=== PATIENT | female | born 1935 | race Caucasian/White ===

== ENCOUNTER → 2019-10-14 13:29 | Outpatient (CLI) | payer MEDICARE, OTHER, SELFPAY ==
--- NOTE | 2019-10-14 13:33 | DI.RAD.S_ITS ---
PROCEDURE: XR KNEE RT 3V INDICATIONS: pain in right knee TECHNIQUE: 3 views of the knee were acquired. COMPARISON: None. FINDINGS: Bones: No fractures or dislocations. No suspicious bony lesions. Mild degenerative change. Soft tissues: Small joint effusion. No suspicious soft tissue calcifications. IMPRESSION: No acute osseous abnormality. Small joint effusion. Dictated by: Hipolito Morales M.D. on 10/14/2019 at 14:12 Approved by: Hipolito Morales M.D. on 10/14/2019 at 14:12
== END ==
PROVIDERS: Family Provider Urology; Referring Provider Physician Assistant; Visit Provider Physician Assistant
DX: M25.561 Pain in right knee (principal); M25.461 Effusion, right knee
CPT/HCPCS: 73562

== ENCOUNTER 2020-06-29 08:51 | Day surgery (SDC) | payer MEDICARE, OTHER, SELFPAY ==
[2020-06-29] MEDS: PROPARACAINE 0.5% OPHTH SOL 2 DROPS EYE-OP (09:55)
[2020-06-29] MEDS: CATARACT EYE COMPOUND (10 DROPS/SYRINGE) 3 DROPS EYE-OP (09:59)
[2020-06-29 10:01] VITALS: BP 122/72; PULSE 65; RESP 16; TEMP 36.7; O2SAT 100; BMI 18.0
[2020-06-29 10:04] LABS: COVID19 -Nasal RAPID Negative (Negative)
--- NOTE | 2020-06-29 10:30 | PM.PREOP ---
Pre-operative Note Interval Note History & Physical reviewed/Exam performed by Physician: Yes Changes to H&P: No
--- NOTE | 2020-06-29 10:31 | PM.OP.1 ---
Operative Date/Time/Diagnoses Pre-op diagnosis: Nuclear cataract right eye Procedure & Clinicians Procedure: Cataract Surgery Same procedure as scheduled: Yes Surgeon: Pito Pollack Anesthesia Type: MAC +/- and Sedation Operative Notes Procedure in detail: Patient brought to the operating suite. Tetracaine drops placed in the right eye. Patient was prepped and draped in sterile manner. Wire lid speculum was placed in the eye. Betadine drops were placed on the eye. This was irrigated. Lidocaine jelly was placed on the eye. A paracentesis port was created with a side-port blade. 0.1 mL 1% preservative free lidocaine was injected into the anterior chamber. The anterior chamber was deepened with viscoelastic. 2.6 mm keratome was used to create a temporal clear corneal incision. Cystotome and Utrata forceps were used to create continuous tear capsulorrhexis. Balanced salt solution was used to hydro dissect the nucleus. The phacoemulsification handpiece was inserted and the nucleus was removed using the stop and chop technique. The irrigation aspiration handpiece was inserted and the remaining cortex was removed. Anterior chamber was deepened with viscoelastic. An Stuart ZCB00 intraocular lens with a power of 21.5 was injected into the capsular bag. Irrigation aspiration handpiece was inserted and the remaining viscoelastic was removed. Incision was hydrated with balanced salt solution and found to be leak free with pressure with Weck-Malissa sponges. 0.1 mL Vigamox injected anterior chamber. 0.3 mL Kenalog 10 mg was injected subconjunctivally. Lid speculum was removed. The patient left the operating room in excellent condition. Complications: none Post-operative Condition: stable Disposition: same day surgery
[2020-06-29] MEDS: MOXIFLOXACIN INJ 4 MG/0.8 ML VIAL 0.5 MG EYE-OP (10:50)
[2020-06-29] MEDS: PHENYLEPHRINE/LIDOCAINE VIAL (OR) 0.2 ML EYE-OP (10:50)
[2020-06-29] MEDS: BALANCED SALT IRRIG SOLN NO.2 500 ML, EPINEPHrine 1 MG IRR (10:51)
[2020-06-29] MEDS: TRIAMCINOLONE 50 MG/5 ML VIAL INJ (10:51)
[2020-06-29] MEDS: LIDOCAINE 2% (GLYDO) 6 ML GEL TOP (10:51)
[2020-06-29] MEDS: TETRACAINE 0.5% OPHTH DROPS 4 ML 2 DROPS EYE-OP (10:51)
[2020-06-29] MEDS: CHONDROIDTIN/SOD HYALURONATE 1.05 ML SYRINGE INTRAOCULA (10:51)
[2020-06-29 11:05] VITALS: BP 127/72; PULSE 61; RESP 14; TEMP 36.6; O2SAT 99
[2020-06-29 11:21] VITALS: BP 129/66; PULSE 62; RESP 12; TEMP 36.3; O2SAT 95
== END 2020-06-29 11:28 | disposition home or self-care (01) ==
PROVIDERS: Family Provider Urology; PCP Physician Assistant; Referring Provider Ophthalmology; Visit Provider Ophthalmology
PROC: (CPT 66984; principal; 2020-06-29 10:45)
DX: H25.11 Age-related nuclear cataract, right eye (principal); I10 Essential (primary) hypertension; F03.90 Unspecified dementia, unspecified severity, without behavioral disturbance, psychotic disturbance, mood disturbance, and anxiety
CPT/HCPCS: 66984; 87635; J0171; J3010; J3301

== ENCOUNTER → 2020-07-13 15:47 | Outpatient (CLI) | payer MEDICARE, OTHER, SELFPAY ==
--- NOTE | 2020-07-13 15:50 | DI.ECHO.S_ITS ---
[facility] +---------+ : : [address] : : : : [id number] : : : : Phone: [phone]+ Echocardiogram Report + + :Name: DAISHA WRAY Study Date: 07/13/2020 Height: 64 in : :[facility] ReadingLocation: Weight: 155 lb : : Gender: Female BSA: 1.8 m2 : :: 1935 Age: 84 yrs BP: 157/75 mmHg: :Reason For Study: MITRAL VALVE PROLAPSE : :Ordering Physician: LORENZO, : :KELY Performed By: Liz Schwartz : :Referring: KELY VENTURA : + + Interpretation Summary The left ventricle is normal in size and wall thickness. The ejection fraction is estimated to be 65-70%. There are no focal wall motion abnormalities. The right ventricle is normal in size and function. Pulmonary artery pressures cannot be estimated because of the lack of a measurable TR jet velocity but the IVC suggests a CVP of around 3 mmHg. The left atrium is severely dilated. Right atrial size is normal. There is mild to moderate mitral annular calcification. There is severe mitral valve prolapse. There is prolapse of the posterior mitral valve leaflet(s). Difficult to quantify mitral regurgitation but I suspect that it is severe. It has an eccentric jet. There is mild aortic regurgitation. There is no other significant valvular heart disease. The aortic root is normal size. Procedure: A two-dimensional transthoracic echocardiogram with color flow and Doppler was performed. The study quality was technically adequate. There is no prior echocardiogram noted for this patient. The patient was in sinus rhythm with heart rates between 62-66 bpm during the exam. Left Ventricle: The left ventricle is normal in size and wall thickness. The ejection fraction is estimated to be 65-70%. There are no focal wall motion abnormalities. Diastolic function could not be accurately assessed due to confounding valvular disease. Right Ventricle: The right ventricle is normal in size and function. Atria: The left atrium is severely dilated. Right atrial size is normal. There is no Doppler evidence for an interatrial shunt. Mitral Valve: There is mild to moderate mitral annular calcification. The mitral valve leaflets appear mildly thickened, but open well. There is severe mitral valve prolapse. There is prolapse of the posterior mitral valve leaflet (s). Difficult to quantify mitral regurgitation but I suspect that it is severe. It has an eccentric jet. Aortic Valve: The aortic valve is trileaflet. The aortic valve opens well. There is no aortic valve stenosis. There is mild aortic regurgitation. Tricuspid Valve: The tricuspid valve is normal in structure and function. There is trace tricuspid regurgitation. Pulmonary artery pressures cannot be estimated because of the lack of a measurable TR jet velocity but the IVC suggests a CVP of around 3 mmHg. Pulmonic Valve: The pulmonic valve is not well seen, but is grossly normal. There is trace pulmonic regurgitation. There is no other significant valvular heart disease. Great Vessels: The aortic root is normal size. The dimensions of the ascending aorta are normal. The IVC is of normal diameter and collapses greater than 50% with a sniff. This suggests a low right atrial pressure of 3 mm Hg. Pericardium/ Pleura There is no pericardial effusion. There is no pleural effusion. MMode/2D Measurements & Calculations LVIDd: 5.1 cm LVOT diam: 2.0 cm LVIDs: 2.9 cm Ao root diam: 2.7 cm FS: 43.8 % asc Aorta Diam: 2.6 cm EPSS: 0.21 cm Ao Arch Diam (Prox Trans): 2.4 cm IVSd: 0.93 cm LVPWd: 0.77 cm LV wilson. diameter/BSA (cm/m^2): 2.9 LV sys. diameter/BSA (cm/m^2): 1.6 LA A2 area: 28.4 cm2 RA long axis: 4.8 cm LA A4 area: 22.6 cm2 RA area: 17.1 cm2 LA length (vol): 5.0 cm RA vol: 51.9 ml LA vol: 108.9 ml RA : 29.6 ml/m2 LA vol index: 62.1 ml/m2 IVC diam: 1.9 cm RVD1 (basal): 3.4 cm TAPSE: 1.8 cm Doppler Measurements & Calculations Ao V2 max: 148.0 cm/sec LVOT Max Siva: 120.9 cm/sec Ao V2 mean: 103.2 cm/sec LV V1 max P.9 mmHg Ao max P.8 mmHg LV V1 VTI: 20.2 cm Ao mean P.7 mmHg ONESIMO(I,D): 2.5 cm2 Ao V2 VTI: 25.5 cm ONESIMO(V,D): 2.5 cm2 sev ratio: 0.79 ONESIMO indexed to BSA (cm^2/m^2): 1.4 AI P1/2t: 609.4 msec AI dec slope: 184.9 cm/sec2 MV E max siva: 210.1 cm/sec PA pr(Accel): 48.2 mmHg MV A max svia: 77.4 cm/sec MV E/A: 2.7 Med Peak E' Siva: 3.9 cm/sec E/E' med: 54.2 Lat Peak E' Siva: 6.7 cm/sec E/E' lat: 31.5 E/e' average: 42.9 MV dec time: 0.27 sec MR ERO: 0.83 cm2 MR PISA: 10.3 cm2 SV(LVOT): 62.6 ml MR flow rate: 379.0 cm3/sec MR PISA radius: 1.3 cm Reading Physician:06:16 PM
== END ==
PROVIDERS: Family Provider Urology; PCP Physician Assistant; Referring Provider Physician Assistant; Visit Provider Physician Assistant
DX: I08.0 Rheumatic disorders of both mitral and aortic valves (principal)
CPT/HCPCS: 93306

== ENCOUNTER → 2020-08-20 10:56 | Outpatient (CLI) | payer MEDICARE, OTHER, SELFPAY ==
--- NOTE | 2020-08-20 10:57 | DI.CT.S_ITS ---
PROCEDURE: CT ABDOMEN PELVIS W CON INDICATIONS: EPIGASTRIC PAIN TECHNIQUE: After the administration of oral and intravenous contrast, axial sections were acquired from the lung bases to the pubic symphysis. Coronal and sagittal reformats were performed. For radiation dose reduction, the following was used: automated exposure control, adjustment of mA and/or kV according to patient size. COMPARISON:[facility], CT, IVP (ABD & PEL WWO CONTRAST), 06/15/2016, 9:53. FINDINGS: ABDOMEN: Lung bases: Scattered atelectasis/scarring. Small right pleural effusion Heart: Cardiomegaly. No pericardial effusion. Liver: Multiple hypodense lesions seen in the liver, the largest measuring 3.1 cm at the dome on image 10/3. Unclear if this reflects to interval decrease in size of a previously seen cyst from the prior study from 06/15/16. This could be a de josé lesion. Gallbladder: Mildly contracted otherwise unremarkable.. Bile ducts: Normal. Pancreas: Diffuse atrophy otherwise unremarkable. Spleen: Normal. Adrenals: A possible small subcentimeter left adrenal adenoma which is unchanged. The right adrenal gland is unremarkable. Kidneys and Ureters: Bilateral renal cortical atrophy and thinning. No hydronephrosis. Stomach and duodenum: Normal. Bowel: No evidence of bowel obstruction. Large amount of stool and gas is present in the rectal vault. There is possible distal small bowel wall thickening and mild adjacent inflammatory stranding. The appendix is thought to be normal seen on image 43/3. Other: No free fluid or air. Abdominal nodes: Normal. Aorta and IVC: Normal in size. Scattered vascular calcifications. Ventral wall: Normal. PELVIS: Bladder: Normal. Inguinal region: No hernia. Pelvic nodes: Normal. Bones: Spondylytic changes and facet arthropathy. No vertebral body compression fracture. Multilevel spondylolisthesis. IMPRESSION: Distal small bowel wall thickening, with mild adjacent inflammatory stranding. This suggests infectious or inflammatory enteritis. The appendix is thought to be normal as above. No bowel obstruction Small right pleural effusion Hypodense lesions seen in liver, the largest of which may represent an involuting cyst although technically indeterminate. Ultrasound surveillance to document long-term stability could be performed as clinically warranted . Additional chronic and incidental findings as above. Dictated by: Palomo Samaniego M.D. on 08/20/2020 at 15:18 Approved by: Palomo Samaniego M.D. on 08/20/2020 at 15:26
== END ==
PROVIDERS: Family Provider Urology; PCP Physician Assistant; Referring Provider Physician Assistant; Visit Provider Physician Assistant
DX: R10.13 Epigastric pain (principal); J90 Pleural effusion, not elsewhere classified; K76.9 Liver disease, unspecified
CPT/HCPCS: 74177; Q9967

== ENCOUNTER → 2020-08-30 11:09 | Outpatient (CLI) | payer MEDICARE, OTHER, SELFPAY ==
[2020-08-30 13:25] LABS: COVID19 -Nasal RAPID Negative (Negative)
== END ==
PROVIDERS: Family Provider Urology; PCP Physician Assistant; Visit Provider Physician Assistant
DX: Z01.812 Encounter for preprocedural laboratory examination (principal); Z20.822 Contact with and (suspected) exposure to COVID-19
CPT/HCPCS: 87635; C9803

== ENCOUNTER 2020-08-31 08:31 | Day surgery (SDC) | payer MEDICARE, OTHER, SELFPAY ==
[2020-08-31] MEDS: PROPARACAINE 0.5% OPHTH SOL 2 DROPS EYE-OP (08:56)
[2020-08-31] MEDS: CATARACT EYE COMPOUND (10 DROPS/SYRINGE) 3 DROPS EYE-OP (08:59)
[2020-08-31 09:02] VITALS: BP 135/80; PULSE 87; RESP 18; TEMP 36.1; O2SAT 98; BMI 19.5
--- NOTE | 2020-08-31 09:20 | SUR.PREOP ---
Pt initially said she had no breakfast, than said she had toast and coffee, Both Dr. Pollack and Dr. Olivares made aware, pts surgery to be delayed, pre op meds ordered.
[2020-08-31] MEDS: METOCLOPRAMIDE 10 MG/2 ML INJ (10:01)
[2020-08-31] MEDS: FAMOTIDINE 20 MG/2 ML VIAL IV (10:05)
--- NOTE | 2020-08-31 11:20 | PM.PREOP ---
Pre-operative Note Interval Note History & Physical reviewed/Exam performed by Physician: Yes Changes to H&P: No
--- NOTE | 2020-08-31 11:20 | PM.OP.1 ---
Operative Date/Time/Diagnoses Pre-op diagnosis: Nuclear Cataract Left eye Post-op diagnosis: same Procedure & Clinicians Same procedure as scheduled: Yes Surgeon: Pito Pollack Anesthesia Type: MAC +/- and Sedation Operative Notes Procedure in detail: Patient brought to the operating suite. Tetracaine drops placed in the left eye. Patient was prepped and draped in sterile manner. Wire lid speculum was placed in the eye. Betadine drops were placed on the eye. This was irrigated. Lidocaine jelly was placed on the eye. A paracentesis port was created with a side-port blade. 0.1 mL 1% preservative free lidocaine was injected into the anterior chamber. The anterior chamber was deepened with viscoelastic. 2.6 mm keratome was used to create a temporal clear corneal incision. Cystotome and Utrata forceps were used to create continuous tear capsulorrhexis. Balanced salt solution was used to hydro dissect the nucleus. The phacoemulsification handpiece was inserted and the nucleus was removed using the stop and chop technique. The irrigation aspiration handpiece was inserted and the remaining cortex was removed. Anterior chamber was deepened with viscoelastic. An Stuart DIB00 intraocular lens with a power of 22.5 was injected into the capsular bag. Irrigation aspiration handpiece was inserted and the remaining viscoelastic was removed. Incision was hydrated with balanced salt solution and found to be leak free with pressure with Weck-Malissa sponges. 0.1 mL Vigamox injected anterior chamber. 0.3 mL Kenalog 10 mg was injected subconjunctivally. Lid speculum was removed. The patient left the operating room in excellent condition. Complications: none Post-operative Condition: stable Disposition: same day surgery
[2020-08-31] MEDS: CHONDROIDTIN/SOD HYALURONATE 1.05 ML SYRINGE INTRAOCULA (11:27)
[2020-08-31] MEDS: LIDOCAINE 2% (GLYDO) 6 ML GEL TOP (11:27)
[2020-08-31] MEDS: MOXIFLOXACIN INJ 4 MG/0.8 ML VIAL 0.5 MG EYE-OP (11:28)
[2020-08-31] MEDS: BALANCED SALT IRRIG SOLN NO.2 500 ML, EPINEPHrine 1 MG IRR (11:28)
[2020-08-31] MEDS: TETRACAINE 0.5% OPHTH DROPS 4 ML 2 DROPS EYE-OP (11:29)
[2020-08-31] MEDS: TRIAMCINOLONE 50 MG/5 ML VIAL INJ (11:29)
[2020-08-31] MEDS: PHENYLEPHRINE/LIDOCAINE VIAL (OR) 0.2 ML EYE-OP (11:29)
[2020-08-31 11:48] VITALS: BP 126/79; PULSE 72; RESP 18; TEMP 36.4; O2SAT 96
== END 2020-08-31 11:56 | disposition home or self-care (01) ==
PROVIDERS: Family Provider Urology; PCP Physician Assistant; Referring Provider Ophthalmology; Visit Provider Ophthalmology
PROC: (CPT 66984; principal; 2020-08-31 10:15)
DX: H25.12 Age-related nuclear cataract, left eye (principal); I10 Essential (primary) hypertension; F03.90 Unspecified dementia, unspecified severity, without behavioral disturbance, psychotic disturbance, mood disturbance, and anxiety
CPT/HCPCS: 66984; J0171; J2765; J3010; J3301

== ENCOUNTER 2021-06-27 10:28 | Observation (INO) | payer MEDICARE, OTHER, SELFPAY ==
[2021-06-27] VITALS (9 sets, daily range): BP systolic 132–170; BP diastolic 69–104; PULSE 50–83; RESP 14–16; TEMP 36.9–37.1; O2SAT 91–96; BMI 19.5; BMI 19.3
--- NOTE | 2021-06-27 10:30 | DI.CT.S_ITS ---
PROCEDURE: CT HEAD/BRAIN WO CON INDICATIONS: Fall on thinners TECHNIQUE: Noncontrast 4.5 mm thick angled axial sections acquired from the foramen magnum to the vertex, with coronal and sagittal reformats. For radiation dose reduction, the following was used: automated exposure control, adjustment of mA and/or kV according to patient size. COMPARISON: [facility], CT, CT CERVICAL SPINE WO CON, 06/27/2021, 10:37. [facility], MR, MR BRAIN WITH/WITHOUT CONTRAST, 11/24/2017, 15:24. FINDINGS: Image quality: Mild streak artifact can be seen through the skull base. CSF spaces: Basal cisterns are patent. No extra-axial fluid collections. The ventricles are symmetric in size and shape. Brain: No intracranial bleeds or masses. There is cerebral volume loss for age, with resultant ventricular and sulcal prominence. There are periventricular and deep white matter chronic small vessel ischemic changes. There is intracranial internal carotid artery atherosclerosis. Skull and face: Calvarium and visualized facial bones appear intact, without suspicious lesions. Sinuses: Visualized sinuses and mastoids are clear. IMPRESSION: No acute intracranial hemorrhage is seen. No acute intracranial process is seen. Dictated by: Donato Oropeza M.D. on 06/27/2021 at 9:51 Approved by: Donato Oropeza M.D. on 06/27/2021 at 9:52
--- NOTE | 2021-06-27 10:30 | DI.CT.S_ITS ---
PROCEDURE: CT CERVICAL SPINE WO CON INDICATIONS: Fall on thinners TECHNIQUE: Noncontrast 3 mm thick sections acquired from the skull base to the T4 level. Sagittal and coronal reformats were then constructed. For radiation dose reduction, the following was used: automated exposure control, adjustment of mA and/or kV according to patient size. COMPARISON: [facility], CT, CT HEAD/BRAIN WO CON, 06/27/2021, 10:37. FINDINGS: Image quality: Excellent. Bones: No fractures or dislocations. Visualized superior ribs are intact. Focal degenerative change is seen involving the C1-C2 interface anteriorly. There is moderate disc space narrowing at C3-C4, with at least moderate disc space narrowing at C5-C6. Moderate to severe disc space narrowing seen at C6-C7. Posteriorly directed endplate osteophytes are seen, which are worst at C6-C7. Partial fusion of facet joints can be seen. Soft tissues: Prevertebral soft tissues are normal in thickness. No paravertebral hematomas. No apical pneumothoraces. A small to moderate right-sided pleural effusion is incidentally noted. IMPRESSION: No acute fracture is seen. Degenerative changes are seen, which are worst inferiorly. A small to moderate right-sided pleural effusion is partially seen. Dictated by: Donato Oropeza M.D. on 06/27/2021 at 9:52 Approved by: Donato Oropeza M.D. on 06/27/2021 at 9:54
--- NOTE | 2021-06-27 10:36 | DI.RAD.S_ITS ---
PROCEDURE: XR PELVIS 1-2V INDICATIONS: Left hip pain TECHNIQUE: Single view(s) of the pelvis acquired. COMPARISON: None. FINDINGS: Bones: Decreased mineralization. There is an impacted fracture deformity of the left inferior pubic ramus and impaction deformity at the left pubic symphysis. No other visible fractures. Sacroiliac joints, femoroacetabular joints, and pubic symphysis demonstrate mild degeneration but are otherwise intact. Soft tissues: Visualized bowel gas pattern is normal. No suspicious soft tissue calcifications. IMPRESSION: 1. Impacted left superior and inferior pubic rami fractures. 2. Demineralization. Dictated by: Shea Romero M.D. on 06/27/2021 at 11:13 Approved by: Shea Romero M.D. on 06/27/2021 at 11:15
--- NOTE | 2021-06-27 10:37 | DI.RAD.S_ITS ---
PROCEDURE: XR CHEST 1V INDICATIONS: Fall TECHNIQUE: One view of the chest was acquired. COMPARISON: None. FINDINGS: Surgical changes and devices: None. Lungs and pleura: Small right pleural effusion versus pleural thickening along the lower aspect of the right hemithorax as well as apical pleural thickening. Diffuse thickening of the interstitial markings is present bilaterally. No pneumothorax. Ill-defined patchy opacities are present in the right upper and right mid lung. Mediastinum: The heart is diffusely enlarged and there is moderate mitral annular calcification. Aortic contour is normal. Bones and chest wall: No visible fractures. Degenerative endplate spurs in the thoracic spine. IMPRESSION: 1. No radiographic evidence of acute trauma. 2. Cardiomegaly and diffuse interstitial thickening is most suggestive of CHF, chronicity uncertain. 3. There is basal and apical pleural thickening versus effusion on the right along with scattered patchy parenchymal opacities. This may reflect infection, inflammation, malignancy, or chronic lung disease. Correlate clinically. Dictated by: Shea Romero M.D. on 06/27/2021 at 11:10 Approved by: Shea Romero M.D. on 06/27/2021 at 11:13
--- NOTE | 2021-06-27 11:28 | DI.CT.S_ITS ---
PROCEDURE: CT PEL WO CON INDICATIONS: severe pain after fall, L hip pain TECHNIQUE: Noncontrast 3 mm axial sections acquired through the bony pelvis, with coronal and sagittal reformatting. COMPARISON: [facility], CR, XR PELVIS 1-2V, 06/27/2021, 10:26. FINDINGS: Image quality: Excellent. Bones: There is a minimally displaced left sacral ala fracture. In addition, there are mildly displaced left superior and inferior pubic remote fractures. No definitive proximal proximal femoral fractures. Grade 1 anterolisthesis of L4 on L5. Moderate degenerative disc disease at L4-L5 and L5-S1. Severe facet arthropathy at L4-L5 and L5-S1 bilaterally. There is generalized osteopenia. Soft tissues: Mild subcutaneous soft tissue contusions in the left buttock. No soft tissue mass or hematoma. A 2.2 cm presacral cyst is probably related to the ovary. Moderate amount of stool in colon. Moderate atherosclerotic calcifications of aorta and iliac arteries. IMPRESSION: 1. Minimally displaced left sacral ala fracture. 2. Mildly displaced left superior and inferior pubic remote fractures. 3. No definitive proximal femoral fractures. Because of osteopenia. Subtle fractures may be difficult to visualize. If clinical symptoms persist, a repeat examination is recommended. 4. Degenerative disc and facet disease in lumbar spine. Dictated by: Miroslava Hernández M.D. on 06/27/2021 at 11:40 Approved by: Miroslava Hernández M.D. on 06/27/2021 at 11:51
--- NOTE | 2021-06-27 11:54 | PC.NURSE ---
Verbal order from Dr. Suggs for Purewick placement r/t status of pelvis. Purewick applied, pt tolerated well, is voiding into it.
[2021-06-27 12:22] LABS: Add Manual Diff / Slide Review NO; Basophils Absolute Auto 0 /uL (0-100); Basophils Percent Auto 0.3 % (0-2); Eosinophils Absolute Auto 0 /uL (0-450); Eosinophils Percent Auto 0.2 % (2-4); Hematocrit 47.3 % (36-46); Hemoglobin 15.8 g/dL (12.0-16.0); Lymphocytes Absolute Auto 500 /uL (1100-4500); Lymphocytes Percent Auto 6.3 % (25-40); Mean Corpuscular HGB Conc 33.3 % (30-36); Mean Corpuscular Hemoglobin 33.3 PG (26-34); Monocytes Absolute Auto 700 /uL (0-900); Monocytes Percent Auto 9.7 % (3-14); Neutrophils Absolute Auto 6500 /uL (1500-7000); Neutrophils Percent Auto 83.5 % (50-75); Platelet Count 210 X10^3/uL (150-400); Red Blood Cell Count 4.72 X10^6/uL (4.0-5.2); Red Cell Distribution Width 15.2 % (11.6-14.8); White Blood Cell Count 7.8 X10^3/uL (4.5-11.0)
[2021-06-27 12:33] LABS: Alanine Aminotransferase 30 IU/L (<35); Albumin 3.9 g/dL (3.5-5.0); Albumin Globulin Ratio 1.2 (1.0-2.8); Alkaline Phosphatase 119 U/L (38-126); Aspartate Aminotransferase 42 IU/L (14-36); BUN Creatinine Ratio 25.9 (6-22); Bilirubin Total 1.5 mg/dL (0.2-1.3); Blood Urea Nitrogen 21 mg/dL (7-17); Calcium 8.8 mg/dL (8.4-10.2); Carbon Dioxide 31 mmol/L (22-32); Chloride 96 mmol/L (98-107); Estimated Glomerular Filt Rate > 60 mL/min (>60); Globulin 3.3 g/dL (1.7-4.1); Glucose 111 mg/dL (80-110); HEMOLYSIS 21 (0-50); Potassium 3.7 mmol/L (3.4-5.1); Sodium 135 mmol/L (137-145); Total Protein 7.2 g/dL (6.3-8.2)
[2021-06-27 12:37] LABS: COVID19 -Nasal RAPID Negative (Negative)
--- NOTE | 2021-06-27 13:01 | ED_ITS ---
HPI - Fall General Chief Complaint: Trauma Stated Complaint: Ground level fall Time Seen by Provider: 06/27/21 10:38 Source: EMS Mode of arrival: EMS History of Present Illness HPI Narrative: 85F former smoker with history of dementia, hypertension, CHF and atrial fibrillation presents with a chief complaint of a ground level fall last evening that was unwitnessed. She presents by EMS and is activated as a modified trauma given fall with possible head injury on anticoagulation. She complains of only pain in her tailbone but is insufficient pain as she cannot ambulate. She normally gets around at home without difficulty. She is always confused and , who was at the bedside, states that she is at her baseline neurologic status. She does not remember falling and contributes very little to the history of present illness but currently denies head or neck pain. She denies any chest pain or shortness of breath. She has no nausea, vomiting or diarrhea. She denies upper extremity injury and complains only of left hip and tailbone pain Related Data Home Medications Medication Instructions Recorded Confirmed apixaban 2.5 mg tablet (Eliquis) 2.5 mg PO BID 06/27/21 06/27/21 donepezil 10 mg tablet 10 mg PO BEDTIME 06/27/21 06/27/21 metoprolol succinate 25 mg 25 mg PO DAILY 06/27/21 06/27/21 tablet,extended release 24 hr sertraline 25 mg tablet 25 mg PO DAILY 06/27/21 06/27/21 torsemide 20 mg tablet 40 mg PO DAILY 06/27/21 06/27/21 Allergies Allergy/AdvReac Type Severity Reaction Status Date / Time Tetracyclines [TETRACYCLINES] Allergy Unknown Rash Verified 06/27/21 10:38 Review of Systems Review of Systems Narrative: GENERAL: Denies chills, fatigue, malaise, fever, sweats. HEENT: Denies sinus pain, ear pain, sore throat, difficulty swallowing, dizziness. RESPIRATORY: Denies dyspnea, cough, wheezing, hemoptysis, sputum. CARDIOVASCULAR: Denies chest pain, palpitations, orthopnea, edema, GASTROINTESTINAL: Denies nausea, vomiting, abdominal pain, diarrhea, constipation, melena. : Denies dysuria, frequency, incontinence, hematuria, urinary retention. MUSCULOSKELETAL: See HPI SKIN: Denies rash, skin lesions, or other NEUROLOGIC: Denies weakness, headache, numbness, change in speech, confusion, seizures, incoordination. PSYCHIATRIC: No concerning psychosocial issues. 12 point review of systems is negative except for those stated above Patient History Medical History Injury of right knee Social History household members: spouse Smoking Status: Former smoker Smoking Status: Former smoker alcohol intake frequency: 0-2 drinks per day Substance Use Type: does not use Exam Narrative Exam Narrative: GENERAL: [85 year old patient appears stated age. Well-developed patient, in mild distress. GCS 14 (confused). HEAD: Atraumatic. Normocephalic. EYES: Pupils equal round and reactive. Extraocular motions intact. No scleral icterus. No injection or drainage. ENT: Nose without bleeding, purulent drainage. Throat without erythema, tonsillar hypertrophy or exudate. Airway patent. NECK: Trachea midline. Non tender CARDIOVASCULAR: Regular rate and rhythm without murmurs, gallops, or rubs. RESPIRATORY: Clear to auscultation. Breath sounds equal bilaterally. No wheezes, rales, or rhonchi. GASTROINTESTINAL: Abdomen soft, non-tender, nondistended. EXTREMITIES: Tender to palpate and left groin and left lateral hip as well as low back, no shortening or external rotation, no numbness, tingling or weakness BACK: Nontender without deformity or crepitance. No flank tenderness. NEURO: Cranial nerves 2-12 grossly intact SKIN: No rash or erythema of visible areas Initial Vital Signs Initial Vital Signs: Vital Signs Pulse Rate 60 06/27/21 10:59 Blood Pressure 146/104 H 06/27/21 10:59 Pulse Oximetry 95 06/27/21 10:59 Course Orders Ordered: ED Orders 06/27/21 10:30 CT cervical spine wo con Stat CT head/brain wo con Stat 06/27/21 10:36 XR pelvis 1-2V Stat 06/27/21 10:37 XR chest 1V Stat 06/27/21 11:28 CT pelvis wo con Stat 06/27/21 12:05 COVID19 -Nasal RAPID/Pre-Proc Stat Complete Blood Count AUTO DIFF Stat Comprehensive Metabolic Panel Stat Acetaminophen (Acetaminophen 325 Mg Tablet) 975 mg PO Q8H PRN PRN Reason: Pain, Mild (1-3) Methocarbamol (Methocarbamol 500 Mg Tablet) 500 mg PO QID PRN PRN Reason: Muscle Spasm Naloxone HCl (Naloxone 0.4 Mg/Ml Vial) 0.2 mg IV Q2MIN PRN PRN Reason: Opiate Reversal Oxycodone HCl (Oxycodone Ir 5 Mg Tablet) 5 mg PO Q4HR PRN PRN Reason: Pain, Moderate (4-6) Consultations Consultation #1: Orthopedics have reviewed imaging, this is a nonsurgical fracture, weight- bearing to toe-touch on left leg Vital Signs Vital signs: Vital Signs - 8 hr 06/27/21 11:30 06/27/21 11:31 Pulse Rate 83 68 Blood Pressure 138/86 Pulse Oximetry 94 94 MDM - Fall Lab Data Result diagrams: 06/27/21 12:05 06/27/21 12:05 Labs: Lab Results 06/27/21 06/27/21 06/27/21 Range/Units 12:05 12:05 12:05 WBC 7.8 (4.5-11.0) X10^3/uL RBC 4.72 (4.0-5.2) X10^6/uL Hgb 15.8 (12.0-16.0) g/dL Hct 47.3 H (36-46) % MCV 100.0 (80-100) fL MCH 33.3 (26-34) PG MCHC 33.3 (30-36) % RDW 15.2 H (11.6-14.8) % Plt Count 210 (150-400) X10^3/uL Neut % (Auto) 83.5 H (50-75) % Lymph % (Auto) 6.3 L (25-40) % Sac % (Auto) 9.7 (3-14) % Eos % (Auto) 0.2 L (2-4) % Baso % (Auto) 0.3 (0-2) % Neut # (Auto) 6500 (0861-2345) /uL Lymph # (Auto) 500 L (3322-7231) /uL Sac # (Auto) 700 (0-900) /uL Eos # (Auto) 0 (0-450) /uL Baso # (Auto) 0 (0-100) /uL Sodium 135 L (137-145) mmol/L Potassium 3.7 (3.4-5.1) mmol/L Chloride 96 L (98-107) mmol/L Carbon Dioxide 31 (22-32) mmol/L BUN 21 H (7-17) mg/dL Creatinine 0.81 (0.52-1.04) mg/dL Estimated GFR > 60 (>60) mL/min BUN/Creatinine Ratio 25.9 H (6-22) Glucose 111 H (80-110) mg/dL Calcium 8.8 (8.4-10.2) mg/dL Total Bilirubin 1.5 H (0.2-1.3) mg/dL AST 42 H (14-36) IU/L ALT 30 (<35) IU/L Alkaline Phosphatase 119 (38-126) U/L Total Protein 7.2 (6.3-8.2) g/dL Albumin 3.9 (3.5-5.0) g/dL Globulin 3.3 (1.7-4.1) g/dL Albumin/Globulin Ratio 1.2 (1.0-2.8) SARS-CoV-2 (PCR) Negative (Negative) Imaging Data CT scan - head: Radiologist's Impression: Yvette Santillan??85??F??1935 ? Allergy/Adv: Tetracyclines Close Pelvis CT (Signed) Lilian Hernández - 06/27/21 Chest X-Ray (Signed) Shea Romero - 06/27/21 Pelvis X-Ray (Signed) Shea Romero - 06/27/[address] (Signed) Donato Oropeza - 06/27/[address] (Signed) Donato Oropeza - 06/27/21 Abdomen/Pelvis CT (Signed) Palomo Samaniego - 08/20/20 Echocardiogram Ultrasound (Signed) Deric Romero - 07/13/20 Knee X-Ray (Signed) Hipolito Morales - 10/14/[address] [address] [address] Scan Report Signed Patient: Yvette Santillan MR#: [id number] : 1935 Acct:[id number] Age/Sex: 85 / F Date of Service: 06/27/21 Loc: ED Accession Number: [id number] ?? Procedure: CT head/brain wo con Ordering Provider: Isma Suggs D.O. PROCEDURE:? CT HEAD/BRAIN WO CON ? INDICATIONS:? Fall on thinners ? TECHNIQUE:? Noncontrast 4.5 mm thick angled axial sections acquired from the foramen magnum to the vertex, with coronal and sagittal reformats.? For radiation dose reduction, the following was used:? automated exposure control, adjustment of mA and/or kV according to patient size.? ? COMPARISON:? [facility], CT, CT CERVICAL SPINE WO CON, 06/27/2021, 10:37.? [facility], MR, MR BRAIN WITH/WITHOUT CONTRAST, 11/24/2017, 15:24. ? FINDINGS:? Image quality:? Mild streak artifact can be seen through the skull base. ? CSF spaces:? Basal cisterns are patent.? No extra-axial fluid collections.? The ventricles are symmetric in size and shape.? ? Brain:? No intracranial bleeds or masses.? There is cerebral volume loss for age, with resultant ventricular and sulcal prominence.? There are periventricular and deep white matter chronic small vessel ischemic changes.? There is intracranial internal carotid artery atherosclerosis.? ? Skull and face:? Calvarium and visualized facial bones appear intact, without suspicious lesions.? ? Sinuses:? Visualized sinuses and mastoids are clear.? ? ? IMPRESSION:? No acute intracranial hemorrhage is seen.? ? No acute intracranial process is seen.? ? ? Dictated by: Donato Oropeza M.D. on 06/27/2021 at 9:51 ? ? Approved by: Donato Oropeza M.D. on 06/27/2021 at 9:52 ? CT - cervical spine: Radiologist's Impression: Yvette Santillan??85??F??1935 ? Allergy/Adv: Tetracyclines Close Pelvis CT (Signed) Lilian Hernández - 06/27/21 Chest X-Ray (Signed) Shea Romero - 06/27/21 Pelvis X-Ray (Signed) Shea Romero - 06/27/[address] (Signed) Donato Oropeza - 06/27/[address] (Signed) Donato Oropeza - 06/27/21 Abdomen/Pelvis CT (Signed) Humble Samaniegoie - 08/20/20 Echocardiogram Ultrasound (Signed) Deric Romero - 07/13/20 Knee X-Ray (Signed) Willy Moralesn - 10/14/19 [facility] [address] [address] [address] Scan Report Signed Patient: Yvette Santillan MR#: [id number] : 1935 Acct:[id number] Age/Sex: 85 / F Date of Service: 06/27/21 Loc: ED Accession Number: [id number] ?? Procedure: CT cervical spine wo con Ordering Provider: Isma Suggs D.O. PROCEDURE:? CT CERVICAL SPINE WO CON ? INDICATIONS:? Fall on thinners ? TECHNIQUE:? Noncontrast 3 mm thick sections acquired from the skull base to the T4 level.? Sagittal and coronal reformats were then constructed.? For radiation dose reduction, the following was used:? automated exposure control, adjustment of mA and/or kV according to patient size.? ? COMPARISON:? [facility], CT, CT HEAD/BRAIN WO CON, 06/27/2021, 10:37. ? FINDINGS:? Image quality:? Excellent.? ? Bones:? No fractures or dislocations.? Visualized superior ribs are intact.? ? Focal degenerative change is seen involving the C1-C2 interface anteriorly.? There is moderate disc space narrowing at C3-C4, with at least moderate disc space narrowing at C5-C6.? Moderate to severe disc space narrowing seen at C6-C7.? Posteriorly directed endplate osteophytes are seen, which are worst at C6-C7.? Partial fusion of facet joints can be seen. ? Soft tissues:? Prevertebral soft tissues are normal in thickness.? No paravertebral hematomas.? No apical pneumothoraces.? ? A small to moderate right-sided pleural effusion is incidentally noted. ? ? IMPRESSION:? No acute fracture is seen. ? Degenerative changes are seen, which are worst inferiorly. ? A small to moderate right-sided pleural effusion is partially seen. ? ? ? Dictated by: Donato Oropeza M.D. on 06/27/2021 at 9:52 ? ? Approved by: Donato Oropeza M.D. on 06/27/2021 at 9:54 ? CT scan - abdomen/pelvis: Radiologist's Impression: [facility] [address] CT Scan Report Signed Patient: Yvette Santillan MR#: [id number] : 1935 Acct:[id number] Age/Sex: 85 / F Date of Service: 06/27/21 Loc: ED Accession Number: [id number] ?? Procedure: CT pelvis wo con Ordering Provider: Isma Suggs D.O. PROCEDURE:? CT PEL WO CON ? INDICATIONS:? severe pain after fall, L hip pain ? TECHNIQUE:? Noncontrast 3 mm axial sections acquired through the bony pelvis, with coronal and sagittal reformatting.? ? COMPARISON:? [facility], CR, XR PELVIS 1-2V, 06/27/2021, 10:26. ? FINDINGS:? Image quality:? Excellent.? ? Bones:? There is a minimally displaced left sacral ala fracture.? In addition, there are mildly displaced left superior and inferior pubic remote fractures.? No definitive proximal proximal femoral fractures. ? Grade 1 anterolisthesis of L4 on L5.? Moderate degenerative disc disease at L4- L5 and L5-S1.? Severe facet arthropathy at L4-L5 and L5-S1 bilaterally.? ? There is generalized osteopenia. ? Soft tissues:? Mild subcutaneous soft tissue contusions in the left buttock.? No soft tissue mass or hematoma.? A 2.2 cm presacral cyst is probably related to the ovary.? Moderate amount of stool in colon.? Moderate atherosclerotic calcifications of aorta and iliac arteries. ? ? IMPRESSION:? ? 1. Minimally displaced left sacral ala fracture. 2. Mildly displaced left superior and inferior pubic remote fractures. 3. No definitive proximal femoral fractures.? Because of osteopenia.? Subtle fractures may be difficult to visualize.? If clinical symptoms persist, a repeat examination is recommended. 4. Degenerative disc and facet disease in lumbar spine.? Dictated by: Miroslava Hernández M.D. on 06/27/2021 at 11:40 ? ? Approved by: Miroslava Hernández M.D. on 06/27/2021 at 11:51? MDM Narrative Medical decision making narrative: Patient was unwitnessed ground level fall, active his modified trauma given use of anticoagulants. She has suffered multiple, stable, nonsurgical fractures her pelvis, requires hospitalization due to severe pain. Discharge Plan Departure Patient Disposition: Admitted as Observation Clinical Impression: Closed pelvic fracture Admit Date/Time: 06/27/21 14:28 Admit Provider: Facundo Vergara
--- NOTE | 2021-06-27 21:18 | P.HP_ITS ---
History of Present Illness History of Present Illness Date Patient Seen: 06/27/21 Time Patient Seen: 22:00 Chief complaint: Ground level fall Narrative: Ms. Santillan is an 85W with PMH dementia, HTN, CHF, and afib who presents to the hospital after a fall. She has known dementia and is unable to provide any information regarding the fall. Her fall was unwitnessed. She is currently without family to provide further info. History is obtained from reports per family. She normally is able to ambulate without difficulty. She does not remember the fall. After falling she had pain on her tailbone and was unable to ambulate. To me she was denying any pain, dizzines, shortness of breath, chest pain, fevers/chills. In the ED workup was done, vitals notable for elevated blood pressure. Labs notable for WBC 7.8, hgb 15.8, creatinine 0.81. COVID negative. Head CT n egative. CT C-spine showed small pleural effusion and no acute spinal pathology. Chest xray showed plerual thickening on the right and cardiomegaly. Pelvic CT showed minimally displaced left sacral ala fracture and remote left superior and inferior pubic fractures. Ortho recommended touch down to weight bearing. She was ordered for pain medications and admitted for further treatment. Patient History Medical History Injury of right knee Family & Social History Social History: household members spouse Prior Living Arrangements House Safety & Behavioral: Feels Safe in Current Yes Environment Tobacco & Substance use: Smoking Status Former smoker alcohol intake frequency 0-2 drinks per day Substance Use Type does not use Meds Home Medications and Allergies Home Medications Medication Instructions Recorded Confirmed Type apixaban 2.5 mg tablet (Eliquis) 2.5 mg PO BID 06/27/21 06/27/21 History donepezil 10 mg tablet 10 mg PO BEDTIME 06/27/21 06/27/21 History metoprolol succinate 25 mg 25 mg PO DAILY 06/27/21 06/27/21 History tablet,extended release 24 hr sertraline 25 mg tablet 25 mg PO DAILY 06/27/21 06/27/21 History torsemide 20 mg tablet 40 mg PO DAILY 06/27/21 06/27/21 History Allergies Allergy/AdvReac Type Severity Reaction Status Date / Time Tetracyclines [TETRACYCLINES] Allergy Unknown Rash Verified 06/27/21 10:38 Review of Systems Review of Systems Narrative: 14 systems reviewed and negative aside from what is noted in HPI Exam Vital Signs (past 8 hours): - 06/27/21 22:31 06/28/21 00:00 06/28/21 02:00 Temperature 98.5 F Pulse Rate 63 Respiratory Rate 16 16 Blood Pressure 136/74 Pulse Oximetry 94 94 06/28/21 04:00 Temperature Pulse Rate Respiratory Rate Blood Pressure Pulse Oximetry 96 Oxygen Delivery Method Room Air Narrative Exam Narrative: GEN: no acute distress HEENT: moist mucous membranes, PERRL NECK: trachea midline, no JVD CV: irregular with systolic murmur PULM: clear bilaterally, no wheezes, rhonchi, rales ABD: soft, nontender, nondistended, no organomegaly, normal bowel sounds EXT: warm and well perfused with no edema, left hip pain with rotating leg NEURO: confused, awake, not oriented, pleasant, moving all extremities Objective Labs Result Diagrams: 06/28/21 04:27 06/28/21 04:27 Labs: Laboratory Results - last 24 hr 06/27/21 06/27/21 06/27/21 12:05 12:05 12:05 WBC 7.8 RBC 4.72 Hgb 15.8 Hct 47.3 H MCV 100.0 MCH 33.3 MCHC 33.3 RDW 15.2 H Plt Count 210 Neut % (Auto) 83.5 H Lymph % (Auto) 6.3 L [place] % (Auto) 9.7 Eos % (Auto) 0.2 L Baso % (Auto) 0.3 Neut # (Auto) 6500 Lymph # (Auto) 500 L [place] # (Auto) 700 Eos # (Auto) 0 Baso # (Auto) 0 Sodium 135 L Potassium 3.7 Chloride 96 L Carbon Dioxide 31 BUN 21 H Creatinine 0.81 Estimated GFR > 60 BUN/Creatinine Ratio 25.9 H Glucose 111 H Calcium 8.8 Magnesium Total Bilirubin 1.5 H AST 42 H ALT 30 Alkaline Phosphatase 119 Total Protein 7.2 Albumin 3.9 Globulin 3.3 Albumin/Globulin Ratio 1.2 SARS-CoV-2 (PCR) Negative 06/28/21 06/28/21 04:27 04:27 WBC 6.5 RBC 4.54 Hgb 15.2 Hct 45.1 MCV 99.3 MCH 33.4 MCHC 33.6 RDW 14.9 H Plt Count 203 Neut % (Auto) 78.2 H Lymph % (Auto) 10.9 L [place] % (Auto) 10.1 Eos % (Auto) 0.4 L Baso % (Auto) 0.4 Neut # (Auto) 5100 Lymph # (Auto) 700 L [place] # (Auto) 700 Eos # (Auto) 0 Baso # (Auto) 0 Sodium 134 L Potassium 3.6 Chloride 100 Carbon Dioxide 26 BUN 23 H Creatinine 0.78 Estimated GFR > 60 BUN/Creatinine Ratio 29.5 H Glucose 128 H Calcium 8.8 Magnesium 2.2 Total Bilirubin AST ALT Alkaline Phosphatase Total Protein Albumin Globulin Albumin/Globulin Ratio SARS-CoV-2 (PCR) Assessment & Plan Assessment & Plan narrative: Ms. Santillan is an 85W with PMH afib, CHF, dementia who presents with a fall found to have scaral fracture. 1. Sacral ala fracture -per ortho non-operative fracture -rec touch down toe weight bearing on left -follow up with ortho in two weeks -PT/OT ordered -ordered for pain control 2. CHF, EF unknown -continue metoprolol -xray shows mild volume overload -likely can restart diuretics on 06/28 if it does not appear diuresis is related to fall 3. Afib -continue metoprolol -rate controlled -hold eliquis for now, given dementia and falls, can consider risk/benefits of continuing eliquis a discharge 4. Dementia -continue donepezil CODE: unknown, as family not present Proxy: Ruddy Santillan, spouse I have utilized all available resources to reconcile the patient's home medications Time Spent With Patient Critical Care time: I spent a total of [] minutes of critical care time on this patient's care today; this time is exclusive of procedural time. Quality MIPS - Admit I confirm the patient?s Advance Care Plan is present, Code status is documented, Surrogate decision maker is in patient?s record [If Yes, STOP here]: Yes
[2021-06-28] VITALS (12 sets, daily range): BP systolic 102–133; BP diastolic 66–99; PULSE 60–85; RESP 14–18; TEMP 36.3–36.9; O2SAT 89–96
[2021-06-28 04:53] LABS: Add Manual Diff / Slide Review NO; Basophils Absolute Auto 0 /uL (0-100); Basophils Percent Auto 0.4 % (0-2); Eosinophils Absolute Auto 0 /uL (0-450); Eosinophils Percent Auto 0.4 % (2-4); Hematocrit 45.1 % (36-46); Hemoglobin 15.2 g/dL (12.0-16.0); Lymphocytes Absolute Auto 700 /uL (1100-4500); Lymphocytes Percent Auto 10.9 % (25-40); Mean Corpuscular HGB Conc 33.6 % (30-36); Mean Corpuscular Hemoglobin 33.4 PG (26-34); Mean Corpuscular Volume 99.3 fL (80-100); Monocytes Absolute Auto 700 /uL (0-900); Monocytes Percent Auto 10.1 % (3-14); Neutrophils Absolute Auto 5100 /uL (1500-7000); Neutrophils Percent Auto 78.2 % (50-75); Platelet Count 203 X10^3/uL (150-400); Red Blood Cell Count 4.54 X10^6/uL (4.0-5.2); Red Cell Distribution Width 14.9 % (11.6-14.8); White Blood Cell Count 6.5 X10^3/uL (4.5-11.0)
[2021-06-28 04:55] LABS: BUN Creatinine Ratio 29.5 (6-22); Blood Urea Nitrogen 23 mg/dL (7-17); Calcium 8.8 mg/dL (8.4-10.2); Carbon Dioxide 26 mmol/L (22-32); Chloride 100 mmol/L (98-107); Estimated Glomerular Filt Rate > 60 mL/min (>60); Glucose 128 mg/dL (80-110); HEMOLYSIS < 15 (0-50); Magnesium 2.2 mg/dL (1.6-2.3); Potassium 3.6 mmol/L (3.4-5.1); Sodium 134 mmol/L (137-145)
--- NOTE | 2021-06-28 06:27 | P.CONS_ITS ---
History of Present Illness Consult details Date Patient Seen: 06/28/21 Time Patient Seen: 06:27 Chief complaint: Ground level fall Reason for consult: Pelvic fractures Requesting provider: Ramone Blanco Narrative: Patient is an 85-year-old female with dementia rigoberto non witnessed fall. She was brought to [facility] where she is found to left sacral ala fracture. Inferior pubic rami fractures. There rami fractures appear subacute or remote. She is unable to provide any history. No family currently present. Does follow simple directions wiggles her toes and ankles. Asking to sit up. D enies numbness or tingling. States she does not feel like she has much strength in her legs this morning. Meds Home Medications and Allergies Home Medications Medication Instructions Recorded Confirmed Type apixaban 2.5 mg tablet (Eliquis) 2.5 mg PO BID 06/27/21 06/27/21 History donepezil 10 mg tablet 10 mg PO BEDTIME 06/27/21 06/27/21 History metoprolol succinate 25 mg 25 mg PO DAILY 06/27/21 06/27/21 History tablet,extended release 24 hr sertraline 25 mg tablet 25 mg PO DAILY 06/27/21 06/27/21 History torsemide 20 mg tablet 40 mg PO DAILY 06/27/21 06/27/21 History Allergies Allergy/AdvReac Type Severity Reaction Status Date / Time Tetracyclines [TETRACYCLINES] Allergy Unknown Rash Verified 06/27/21 10:38 Review of Systems Review of Systems ROS: Yes unobtainable due to mental condition Exam Vital Signs (past 8 hours): - 06/27/21 22:31 06/28/21 00:00 06/28/21 02:00 Temperature 98.5 F Pulse Rate 63 Respiratory Rate 16 16 Blood Pressure 136/74 Pulse Oximetry 94 94 06/28/21 04:00 Temperature Pulse Rate Respiratory Rate Blood Pressure Pulse Oximetry 96 Oxygen Delivery Method Room Air Narrative Exam Narrative: Pleasant female, dementia lying in bed. Oriented to being in the hospital remembers that she was told she had fractures but she did not know about them HEENT exam normocephalic atraumatic Respiratory unlabored on room CV regular rate Musculoskeletal moving bilateral upper extremities no tenderness to palpation no deformities Lower extremities. Demonstrates dorsiflexion plantar flexion bilateral ankles and wiggles toes. Palpable dorsalis pedis pulses. No deformities or bruising on the lower legs knees or thighs. Endorses tenderness around her groin and pelvis on the left side. Pelvis stable to rock. Sensation grossly intact to light touch. Rest of motor exam limited secondary to pain. Objective Imaging CT scan - pelvis: My impression: Left sacral ala fracture nondisplaced left superior inferior pubic rami fractures Radiologist's impression: Left sacral ala fracture nondisplaced left superior and inferior pubic rami fractures remote Labs Result Diagrams: 06/28/21 04:27 06/28/21 04:27 Labs: Laboratory Results - last 24 hr 06/27/21 06/27/21 06/27/21 12:05 12:05 12:05 WBC 7.8 RBC 4.72 Hgb 15.8 Hct 47.3 H MCV 100.0 MCH 33.3 MCHC 33.3 RDW 15.2 H Plt Count 210 Neut % (Auto) 83.5 H Lymph % (Auto) 6.3 L [place] % (Auto) 9.7 Eos % (Auto) 0.2 L Baso % (Auto) 0.3 Neut # (Auto) 6500 Lymph # (Auto) 500 L [place] # (Auto) 700 Eos # (Auto) 0 Baso # (Auto) 0 Sodium 135 L Potassium 3.7 Chloride 96 L Carbon Dioxide 31 BUN 21 H Creatinine 0.81 Estimated GFR > 60 BUN/Creatinine Ratio 25.9 H Glucose 111 H Calcium 8.8 Magnesium Total Bilirubin 1.5 H AST 42 H ALT 30 Alkaline Phosphatase 119 Total Protein 7.2 Albumin 3.9 Globulin 3.3 Albumin/Globulin Ratio 1.2 SARS-CoV-2 (PCR) Negative 06/28/21 06/28/21 04:27 04:27 WBC 6.5 RBC 4.54 Hgb 15.2 Hct 45.1 MCV 99.3 MCH 33.4 MCHC 33.6 RDW 14.9 H Plt Count 203 Neut % (Auto) 78.2 H Lymph % (Auto) 10.9 L [place] % (Auto) 10.1 Eos % (Auto) 0.4 L Baso % (Auto) 0.4 Neut # (Auto) 5100 Lymph # (Auto) 700 L [place] # (Auto) 700 Eos # (Auto) 0 Baso # (Auto) 0 Sodium 134 L Potassium 3.6 Chloride 100 Carbon Dioxide 26 BUN 23 H Creatinine 0.78 Estimated GFR > 60 BUN/Creatinine Ratio 29.5 H Glucose 128 H Calcium 8.8 Magnesium 2.2 Total Bilirubin AST ALT Alkaline Phosphatase Total Protein Albumin Globulin Albumin/Globulin Ratio SARS-CoV-2 (PCR) [facility] Medical History Injury of right knee Social History household members: spouse Tobacco & Substance Use Smoking Status: Former smoker Assessment & Plan Assessment and plan (1) Closed pelvic fracture: Status: Acute Plan Left sacral ala fracture and the inferior and superior pubic rami fractures which are of questionable age. Unwitnessed ground level fall. I recommend toe- touch weight-bearing left side. Work with PT OT. [facility]-up x-[facility] in [facility]. Calcium vitamin-D for bone health. Osteoporotic fractures COVID-19 COVID-19 status: Negative Time Spent With Patient Time with patient: less than 30 minutes Critical Care time: I spent a total of [] minutes of critical care time on this patient's care today; this time is exclusive of procedural time.
[2021-06-28] MEDS: METOPROLOL ER 25 MG TABLET PO (09:07)
[2021-06-28] MEDS: SERTRALINE 50 MG TABLET 25 MG PO (09:07)
--- NOTE | 2021-06-28 09:40 | PT.IPTN ---
Current Diagnoses Fracture of unspecified parts of lumbosacral spine and pelvis, initial encounter for closed fracture (06/27/21) Physical Therapy Treatment Note M3 PT-IP Subjective Start: 06/28/21 12:18 Freq: NEEDED Status: Active Protocol: Document 06/28/21 09:40 AB (Rec: 06/28/21 12:25 AB [id number]) Subjective Physical Therapy Visit Type Type Patient Refusal Notes attempted PT eval x 2 but pt is resistive. Pt with dx dementia affecting following directions and can get agitated easily. assisted pt with mobility due to c/o increase pain on her tail bone but every time assist is given, pt will get resistive and says No. spouse in room and encouraged pt and tries to explain to pt but with no success. pt given time to complete tasks with max cues and required at least ~ 30 sec on each eval attempts but pt unable to complete any tasks. nurse also in room to assist. informed case assistant regarding pt's resistance and unable to do PT.
--- NOTE | 2021-06-28 10:45 | OT.IPNOTE ---
Per nursing pt just attempted to get out of bed with PT earlier and in too much pain. Nurse requesting OT to come back in PM to see the pt.
[2021-06-28] MEDS: APIXABAN 5 MG TABLET 2.5 MG PO ×2 (10:47→22:11)
[2021-06-28] MEDS: ACETAMINOPHEN 325 MG TABLET 975 MG PO (10:48)
[2021-06-28] MEDS: OXYCODONE IR 5 MG TABLET PO (10:49)
--- NOTE | 2021-06-28 14:33 | CM.DPNOTE ---
[facility]ax[facility] per Magdalene and received fax conf. Kezia Lund CM Assist.
--- NOTE | 2021-06-28 14:41 | PT-IP ANOTE ---
checked pt again and case management assistant in room. stated no PT needs and pt will be going on hospice care. will d/c PT eval order.
--- NOTE | 2021-06-28 14:42 | OT.IPNOTE ---
Pt going on hospice, therefore per senior case manager OT not needed, therefore discharge OT eval orders.
--- NOTE | 2021-06-28 15:40 | PM.PN.1 ---
Subjective Subjective Date Patient Seen: 06/28/21 Interval history: Patient denies pain at rest, she grimaces when she moves but has such poor short term memory she does not recall why she has pain. Exam Vital Signs (past 8 hours): - 06/28/21 09:07 06/28/21 09:37 06/28/21 09:49 Temperature 97.7 F Pulse Rate 60 63 Respiratory Rate 16 Blood Pressure 133/99 H 133/99 H Pulse Oximetry 93 06/28/21 11:28 Temperature Pulse Rate Respiratory Rate Blood Pressure Pulse Oximetry 94 Oxygen Delivery Method Room Air Oxygen Flow Rate 0 Narrative Exam Narrative: Pleasant female, dementia lying in bed.? Oriented to being in the hospital but very poor short term memory. HEENT exam normocephalic atraumatic Pulm CTA B/l no wheezing rhonchi or rales. CV RRR no m/r/g. Musculoskeletal no edema or joint effusion. Lower extremities.? Demonstrates dorsiflexion plantar flexion bilateral ankles and wiggles toes.? Palpable dorsalis pedis pulses.? No deformities or bruising on the lower legs knees or thighs.? Endorses tenderness around her groin and pelvis on the left side.? Sensation grossly intact to light touch.? Rest of motor exam limited secondary to pain. Objective Labs Result Diagrams: 06/28/21 04:27 06/28/21 04:27 Labs: Laboratory Results - last 24 hr 06/28/21 06/28/21 04:27 04:27 WBC 6.5 RBC 4.54 Hgb 15.2 Hct 45.1 MCV 99.3 MCH 33.4 MCHC 33.6 RDW 14.9 H Plt Count 203 Neut % (Auto) 78.2 H Lymph % (Auto) 10.9 L [place] % (Auto) 10.1 Eos % (Auto) 0.4 L Baso % (Auto) 0.4 Neut # (Auto) 5100 Lymph # (Auto) 700 L [place] # (Auto) 700 Eos # (Auto) 0 Baso # (Auto) 0 Sodium 134 L Potassium 3.6 Chloride 100 Carbon Dioxide 26 BUN 23 H Creatinine 0.78 Estimated GFR > 60 BUN/Creatinine Ratio 29.5 H Glucose 128 H Calcium 8.8 Magnesium 2.2 PFSH Medical History Injury of right knee Social History household members: spouse Smoking Status: Former smoker Assessment & Plan Assessment & Plan narrative: Ms. Santillan is an 85W with PMH afib, CHF, dementia who presents with a fall found to have scaral fracture. 1. Sacral ala fracture -per ortho non-operative fracture -rec touch down toe weight bearing on left -follow up with ortho in two weeks -PT/OT ordered but patient not going to benefit due to severity of dementia. -ordered for pain control -plan will be for home with hospice when hospital bed delivered. 2. CHF, EF unknown -continue metoprolol -xray shows mild volume overload -will restart home diuretic tomorrow but at 20 mg instead of 40 (torsemide) 3. Afib -continue metoprolol -rate controlled -can resume eliquis for now, consider stopping prior to potentially moving in a couple of weeks depending on outpatient evaluation. 4. Dementia -continue donepezil Dispo: Plan will be home with hospice, and will be able to discharge once a hospital bed is delivered. She will likely need to remain in her hospital bed for a couple of weeks. Depending on her weight-bearing status, if she is weight-bearing as tolerated she may be able to benefit from outpatient physical therapy in a couple of weeks. CODE: DNR Proxy: Ruddy Santillan, spouse I have utilized all available resources to reconcile the patient's home medications Time Spent With Patient Critical Care time: I spent a total of [] minutes of critical care time on this patient's care today; this time is exclusive of procedural time.
--- NOTE | 2021-06-28 16:45 | CM.DANOTE ---
Addendum entered by Magdalene White 06/28/21 16:58: Clinical has been faxed to Hospice early afternoon by ALCIDES/Kezia. Original Note: DCP/Assessment: Reviewed chart. Patient is a 85yr old female admitted to [facility] after a [facility]. Patient currently with nonoperative pelvic fracture. Patient has history of dementia. PCP Is Sarita Veloz. Primary payor is 1)Medicare 2) [employer]. Met with patient and spouse this AM. Patient resting comfortably in bed pleasantly confused. During visit RETAIL ACCOUNT SPECIALIST discussed potential d/c options. Initially, it was thought that patient would benefit from rehabilitation. However, later in the day RETAIL ACCOUNT SPECIALIST received call from [facility] indicating that family was interested in hospice. RETAIL ACCOUNT SPECIALIST verified this information with provider after he saw patient and spouse today. Placed call to Hospice and spoke with Tayla she reports that she has spoken with the daughter but not with DPOA/spouse. Notified Tayla that spouse in the room and that he can be reached via cell phone. Tayla then reported that she had planned on calling spouse tomorrow when daughter was present? Requested from [facility] that DME be ordered for delivery tomorrow so that patient could go home after informational visit. Unclear answer from Tayla on whether or not that was going to happen. Dr. Vergara agrees that patient only needs DME delivery to be discharged. Patient does not require same day visit from hospice. Anyway current plan is for patient to d/c home once DME delivered. If delay occurs it is due to hospice not ordering DME today for discharge tomorrow. RETAIL ACCOUNT SPECIALIST originally spoke with Tayla before 2:00pm this afternoon. Patient most likely will need non-urgent BLS transport once d/c date established. P: Home with Hospice. May need to discuss spouse hiring additional help in the residence if needed. RETAIL ACCOUNT SPECIALIST briefly discussed caregivers today. YEIMI George Discharge Planning/Care Management CM Discharge Assessment Start: 06/28/21 16:42 Freq: Status: Active Protocol: Document 06/28/21 16:42 KJS (Rec: 06/28/21 16:45 KJS [id number]) Discharge Planning Assessment Assigned Supervisor Tan Room YEIMI George Contact Information Ruddy Santillan (spouse) # [phone] Advance Directives? No History Provided By Patient,Significant Other, Medical Record Prior Living Arrangements House Household Members spouse Type of transporation used prior to Relies on Others admit Independent with ADL's No Is patient alert and oriented? No Caregiver for Another No Barriers to Discharge No Comment Spouse requesting that patient return home with hospice. Discharge Plan Hospice Transportation Arrangement Family vs. non-urgent BLS transport. Referrals Initiated Other Review Status In Process Next Review Type Continued Stay Review Discharge Planning/Care Management CM Discharge Assessment Start: 06/28/21 16:42 Freq: Status: Active Protocol: Document 06/28/21 16:42 KJS (Rec: 06/28/21 16:45 KJS [id number]) Discharge Planning Assessment Assigned Supervisor Tan Room YEIMI George Contact Information Ruddy Santillan (spouse) ph# [phone] Advance Directives? No History Provided By Patient,Significant Other, Medical Record Prior Living Arrangements House Household Members spouse Type of transporation used prior to Relies on Others admit Independent with ADL's No Is patient alert and oriented? No Caregiver for Another No Barriers to Discharge No Comment Spouse requesting that patient return home with hospice. Discharge Plan Hospice Transportation Arrangement Family vs. non-urgent BLS transport. Referrals Initiated Other Review Status In Process Next Review Type Continued Stay Review
[2021-06-28] MEDS: DONEPEZIL 5 MG TABLET 10 MG PO (22:11)
[2021-06-29] VITALS (8 sets, daily range): BP systolic 113–141; BP diastolic 65–75; PULSE 70–75; RESP 16–18; TEMP 36.4–36.7; O2SAT 92–96
[2021-06-29] MEDS: OXYCODONE IR 5 MG TABLET PO ×2 (02:39→12:39)
[2021-06-29 05:04] LABS: Add Manual Diff / Slide Review NO; Basophils Absolute Auto 0 /uL (0-100); Basophils Percent Auto 0.3 % (0-2); Eosinophils Absolute Auto 0 /uL (0-450); Eosinophils Percent Auto 0.5 % (2-4); Hematocrit 43.8 % (36-46); Hemoglobin 14.9 g/dL (12.0-16.0); Lymphocytes Absolute Auto 600 /uL (1100-4500); Lymphocytes Percent Auto 8.2 % (25-40); Mean Corpuscular HGB Conc 34.1 % (30-36); Mean Corpuscular Hemoglobin 33.7 PG (26-34); Mean Corpuscular Volume 98.9 fL (80-100); Monocytes Absolute Auto 700 /uL (0-900); Monocytes Percent Auto 9.7 % (3-14); Neutrophils Absolute Auto 6200 /uL (1500-7000); Neutrophils Percent Auto 81.3 % (50-75); Platelet Count 187 X10^3/uL (150-400); Red Blood Cell Count 4.43 X10^6/uL (4.0-5.2); White Blood Cell Count 7.6 X10^3/uL (4.5-11.0)
[2021-06-29 05:14] LABS: Blood Urea Nitrogen 34 mg/dL (7-17); Calcium 8.7 mg/dL (8.4-10.2); Carbon Dioxide 26 mmol/L (22-32); Chloride 99 mmol/L (98-107); Estimated Glomerular Filt Rate > 60 mL/min (>60); Glucose 132 mg/dL (80-110); HEMOLYSIS < 15 (0-50); Magnesium 2.3 mg/dL (1.6-2.3); Potassium 3.7 mmol/L (3.4-5.1); Sodium 134 mmol/L (137-145)
[2021-06-29] MEDS: SERTRALINE 50 MG TABLET 25 MG PO (09:24)
[2021-06-29] MEDS: METOPROLOL ER 25 MG TABLET PO (09:24)
[2021-06-29] MEDS: TORSEMIDE 10 MG TABLET 20 MG PO (09:24)
[2021-06-29] MEDS: APIXABAN 5 MG TABLET 2.5 MG PO (09:26)
--- NOTE | 2021-06-29 09:36 | P.DS_ITS ---
History of Present Illness History of Present Illness Date Patient Seen: 06/29/21 Chief complaint: Ground level fall Narrative: Per Dr. Briones, Ms. Santillan is an 85W with PMH dementia, HTN, CHF, and afib who presents to the hospital after a fall. She has known dementia and is unable to provide any information regarding the fall. Her fall was unwitnessed. She is currently without family to provide further info. History is obtained from reports per family. She normally is able to ambulate without difficulty. She does not remember the fall. After falling she had pain on her tailbone and was unable to ambulate. To me she was denying any pain, dizzines, shortness of breath, chest pain, fevers/chills. In the ED workup was done, vitals notable for elevated blood pressure. Labs notable for WBC 7.8, hgb 15.8, creatinine 0.81. COVID negative. Head CT negat valerio. CT C-spine showed small pleural effusion and no acute spinal pathology. Chest xray showed plerual thickening on the right and cardiomegaly. Pelvic CT showed minimally displaced left sacral ala fracture and remote left superior and inferior pubic fractures. Ortho recommended touch down to weight bearing. She was ordered for pain medications and admitted for further treatment. Discharge Providers Provider Date of admission: 06/27/21 14:28 Discharge Date: 06/29/21 Primary care physician: Sarita Veloz PA-C Consults: 06/27/21 17:58 Consult to Occupational Therapy Evaluate & Treat Comment: Physician Instructions: Evaluate and treat Consult to Physical Therapy Evaluate & Treat Comment: Physician Instructions: Evaluate and Treat Discharge provider: Facundo Vergara DO Summary Hospital Course Discharge Diagnosis: Please see hospital course by problem list noted below Hospital Course: Ms. Santillan is an 85W with PMH afib, CHF, dementia who presents with a fall found to have scaral fracture. 1. Sacral ala fracture -per ortho non-operative fracture, rec touch down toe weight bearing on left -follow up with ortho in two weeks as an outpatient. -PT/OT ordered but patient not going to benefit due to severity of dementia at this time. May benefit if she is WBAT as she can follow directions but currently cannot remember restrictions on her left leg. -pain was adequately controlled. - agreed with plan for discharge home with home hospice. POLST form was completed stating patient was DNR with limited medical interventions. -patient was discharged home once hospital bed arrived via BLS. 2. CHF, EF unknown -continue metoprolol and home torsemide on discharge. This was held briefly during her stay given her fall. Echocardiogram was not performed as patient was predominantly euvolemic and would not change acute management. 3. Afib -continue metoprolol -rate controlled -can resume eliquis for now, consider stopping prior to potentially moving in a couple of weeks depending on outpatient evaluation and fall risk. 4. Dementia -continue donepezil Dispo:?Discharged home with hospice. CODE: DNR, limited medical interventions. Completed POLST form at bedside today with spouse. Proxy: Ruddy Santillan, spouse Time Spent with Patient Time spent: Greater than 30 minutes Exam Vital Signs (past 8 hours): - 06/29/21 04:00 06/29/21 04:30 06/29/21 07:55 Temperature 98.0 F Pulse Rate 70 Respiratory Rate 18 Blood Pressure 141/75 H Pulse Oximetry 93 96 92 Oxygen Delivery Method Room Air Oxygen Flow Rate 0 Narrative Exam Narrative: Pleasant female, demented, lying in bed.? Oriented to being in the hospital but very poor short term memory. HEENT exam normocephalic atraumatic Pulm CTA B/l no wheezing rhonchi or rales. CV RRR no m/r/g. Musculoskeletal no edema or joint effusion. Lower extremities.? Demonstrates dorsiflexion plantar flexion bilateral ankles and wiggles toes.? Palpable dorsalis pedis pulses.? No deformities or bruising on the lower legs knees or thighs.? Endorses tenderness around her groin and pelvis on the left side.? Sensation grossly intact to light touch.? Rest of motor exam limited secondary to pain. Objective Labs Result Diagrams: 06/29/21 04:59 06/29/21 04:59 Labs: Laboratory Results - last 24 hr 06/29/21 06/29/21 04:59 04:59 WBC 7.6 RBC 4.43 Hgb 14.9 Hct 43.8 MCV 98.9 MCH 33.7 MCHC 34.1 RDW 15.0 H Plt Count 187 Neut % (Auto) 81.3 H Lymph % (Auto) 8.2 L [place] % (Auto) 9.7 Eos % (Auto) 0.5 L Baso % (Auto) 0.3 Neut # (Auto) 6200 Lymph # (Auto) 600 L [place] # (Auto) 700 Eos # (Auto) 0 Baso # (Auto) 0 Sodium 134 L Potassium 3.7 Chloride 99 Carbon Dioxide 26 BUN 34 H Creatinine 0.83 Estimated GFR > 60 BUN/Creatinine Ratio 41.0 H Glucose 132 H Calcium 8.7 Magnesium 2.3 PFSH Medical History Injury of right knee Social History household members: spouse Smoking Status: Former smoker Discharge Plan Discharge Plan Patient Disposition: Hospice - Home Provider Discharge Comment: Patient was admitted to the hospital with multiple pelvic fractures. Given memory impairment recommend discharge home on hospice, stay in hospital bed as recommendation was for toe touch weight bearing. Follow up with orthopedics possibly to re-assess weight bearing status in a couple of weeks, may be able to attempt outpatient PT if she is weight bearing as tolerated. Discharge orders & Medications Discharge Orders: Discharge (Order); Ordered 06/29/21 Ordered By: Facundo Vergara Prescriptions: New methocarbamol 500 mg Tablet 500 mg PO QID PRN (Reason: Muscle Spasm) 7 Days Qty: 28 0RF acetaminophen 325 mg Tablet 975 mg PO Q8H PRN (Reason: Pain, Mild (1-3)) 30 Days Qty: 90 0RF oxycodone 5 mg Tablet 5 mg PO Q4HR PRN (Reason: Pain, Moderate (4-6)) 7 Days Qty: 20 0RF Continued torsemide 20 mg Tablet 40 mg PO DAILY 0RF donepezil 10 mg Tablet 10 mg PO BEDTIME 0RF sertraline 25 mg Tablet 25 mg PO DAILY 0RF metoprolol succinate 25 mg Tablet Extended Release 24 Hr 25 mg PO DAILY 0RF Eliquis 2.5 mg Tablet 2.5 mg PO BID 0RF Follow up/Referrals: Angélica Garcia MD [Physician] - 2 Weeks (multiple pelvic fractures) Sarita Veloz PA-C [Primary Care Provider] - Diet/Activity/Treatments Diet: Diet as Tolerated Activity: TTWB LLE. Discharge Data Primary Care Provider: Sarita Veloz Attending Provider: Facundo Vergara
--- NOTE | 2021-06-29 09:38 | CM.DPNOTE ---
Called per Lea Quintero for BLS for 1300 pickle pumper. Spoke to Harry who said it was okay. Kezia Lund, DANA Assist.
--- NOTE | 2021-06-29 13:26 | PC.NURSE ---
Pt discharged at 1315, escorted off floor in stretcher, accompanied by ambulance personnel and spouse. IV removed, discharge teaching provided to spouse including medications and follow up appointments. Hospice to meet with spouse at home between 2pm-3pm. All belongings left with spouse.
--- NOTE | 2021-06-29 16:16 | CM.DPNOTE ---
DC Note DC home w/family today via BLS (arranged by ALCIDES Mast) [facility] arriving for start of care this afternoon Patient's family agreeable to plan. FARHAT updated by Dr Vergara Faxed DC Summary in draft form to Renea at [facility]
== END 2021-06-29 13:28 | disposition hospice, home (50) ==
LOC: ED 14:22 → AC 14:28
PROVIDERS: Admitting Provider Internal Medicine; Emergency Provider Emergency Medicine; Family Provider Urology; PCP Physician Assistant; Referring Provider Emergency Medicine; Visit Provider Internal Medicine
DX: S32.512A Fracture of superior rim of left pubis, initial encounter for closed fracture (principal); S32.10XA Unspecified fracture of sacrum, initial encounter for closed fracture; W18.30XA Fall on same level, unspecified, initial encounter; Y92.009 Unspecified place in unspecified non-institutional (private) residence as the place of occurrence of the external cause; F03.90 Unspecified dementia, unspecified severity, without behavioral disturbance, psychotic disturbance, mood disturbance, and anxiety; I10 Essential (primary) hypertension; I48.91 Unspecified atrial fibrillation; I50.9 Heart failure, unspecified; Z66 Do not resuscitate; Z20.822 Contact with and (suspected) exposure to COVID-19
CPT/HCPCS: 36415; 70450; 71045; 72125; 72170; 72192; 80048; 80053; 83735; 85025; 87635; 94760; 99284; C9803; G0378